=== PATIENT | male | born 1995 | race Caucasian/White ===

== ENCOUNTER 2019-09-28 12:00 | Observation (INO) ==
[2019-09-28 12:51] LABS: Basophils # 0.1 K/mcL (0.0-0.2); Basophils % 0.4 %; Eosinophils # 0.1 K/mcL (0.0-0.6); Eosinophils % 0.9 %; Hematocrit 47.4 % (37.5-50.1); Immature Granulocytes % 0.5 % (0-4); Lymphocytes # 1.7 K/mcL (0.6-4.6); Mean Corpuscular HGB Conc 33.8 g/dL (31.6-35.5); Mean Corpuscular Hemoglobin 31.1 pg (28.0-33.3); Mean Platelet Volume 9.8 fL (9.4-12.4); Monocytes # 0.8 K/mcL (0.0-1.3); Monocytes % 5.9 %; Neutrophils # 10.2 K/mcL (1.6-8.9); Platelet Count 203 K/mcL (140-400); Red Blood Count 5.15 M/mcL (4.19-5.50); Red Cell Distribution Width 13.2 % (11.5-14.5); Segmented Neutrophils % 79.3 %; White Blood Count 12.8 K/mcL (4.3-11.1)
[2019-09-28] MEDS ORDERED: *HR* LORazepam 2 MG/ML VIAL ONE (13:04)
[2019-09-28 13:05] LABS: Alanine Aminotransferase 28 Units/L (7-52); Albumin 4.6 g/dL (3.5-5.7); Albumin/Globulin Ratio 1.8 (1.1-2.2); Alkaline Phosphatase 68 Units/L (34-104); Aspartate Amino Transferase 23 Units/L (13-39); BUN/Creatinine Ratio 11 (6-26); Bilirubin,Total 0.4 mg/dL (0.3-1.0); Blood Urea Nitrogen 12 mg/dL (6-20); Calcium 9.2 mg/dL (8.6-10.3); Carbon Dioxide 18 mEq/L (23-29); Chloride 102 mEq/L (98-107); Globulin 2.5 g/dL (2.4-3.5); Glucose 90 mg/dL (70-105); Osmolality,Calculated 273 (280-300); Potassium 4.6 mEq/L (3.5-5.1); Sodium 132 mEq/L (136-145); Total Protein 7.1 g/dL (6.4-8.9); eGFR For African Americans > 60 (> 60); eGFR For Non-African Americans > 60 (> 60)
[2019-09-28] MEDS ORDERED: *HR* LORazepam 2 MG/ML VIAL IVP ONE (13:10)
[2019-09-28] MEDS ORDERED: *HR* LORazepam 2 MG/ML VIAL IVP STA (13:23)
[2019-09-28] MEDS ORDERED: *HR* LORazepam 2 MG/ML VIAL IVP PRN (13:31)
[2019-09-28] MEDS ORDERED: levETIRAcetam 1,000 MG in 0.9 % Sodium Chloride 100 ML IVPB ONE (14:10)
[2019-09-28] MEDS ORDERED: Naloxone 0.4 MG/ML INJ IVP PRN (16:07)
[2019-09-28 19:13] LABS: Amphetamine Screen,Urine Negative ng/mL (Cutoff=1000); Barbiturate Screen,Urine Negative ng/mL (Cutoff=200); Benzodiazepines Screen,Urine Negative ng/mL (Cutoff=200); Cannabinoid Screen,Urine Positive ng/mL (Cutoff = 50); Cocaine Screen,Urine Negative ng/mL (Cutoff= 300); Opiate Screen,Urine Negative ng/mL (Cutoff=300); Phencyclidine Screen,Urine Negative ng/mL (Cutoff=25)
[2019-09-29 06:05] LABS: Basophils % 0.3 %; Eosinophils # 0.1 K/mcL (0.0-0.6); Eosinophils % 0.7 %; Hematocrit 50.1 % (37.5-50.1); Hemoglobin 16.2 g/dL (12.9-16.9); Immature Granulocytes % 0.4 % (0-4); Lymphocytes # 2.1 K/mcL (0.6-4.6); Lymphocytes % 23.5 %; Mean Corpuscular HGB Conc 32.3 g/dL (31.6-35.5); Mean Corpuscular Hemoglobin 30.4 pg (28.0-33.3); Mean Platelet Volume 10.2 fL (9.4-12.4); Monocytes # 0.6 K/mcL (0.0-1.3); Monocytes % 7.1 %; Neutrophils # 6.1 K/mcL (1.6-8.9); Platelet Count 219 K/mcL (140-400); Red Blood Count 5.33 M/mcL (4.19-5.50); Red Cell Distribution Width 13.3 % (11.5-14.5)
[2019-09-29 06:35] LABS: BUN/Creatinine Ratio 14 (6-26); Blood Urea Nitrogen 17 mg/dL (6-20); Calcium 9.4 mg/dL (8.6-10.3); Carbon Dioxide 19 mEq/L (23-29); Chloride 103 mEq/L (98-107); Glucose 68 mg/dL (70-105); Osmolality,Calculated 282 (280-300); Potassium 3.7 mEq/L (3.5-5.1); Sodium 136 mEq/L (136-145); eGFR For African Americans > 60 (> 60); eGFR For Non-African Americans > 60 (> 60)
[2019-09-29] MEDS ORDERED: levETIRAcetam 250 MG TABLET PO SCH (07:30)
[2019-09-29] MEDS ORDERED: Divalproex (12 HR) 500 MG TABLET PO SCH (09:00)
[2019-09-29 11:24] VITALS: BP 131/68
== END 2019-09-29 13:42 | disposition left against medical advice (07) ==
LOC: 3BNU 12:00 → EMEROOARM 12:00 → 3BNU 15:36
PROVIDERS: ADMIT Internal Medicine; ATTEND Internal Medicine